=== PATIENT | female | born 1950 | race Caucasian/White ===

== ENCOUNTER 2016-11-10 07:59 | Day surgery (SDC) | payer MEDICARE, OTHER ==
--- NOTE | ~2016-11-10 | EGD ---
EGD REPORT [facility] [address] [address] NAME: ROCIO RENTERIA : [birth year] STATUS : REG [facility]#: [id number] AGE: 66 ADM/REG DATE : 11/10/16 MR#: [id number] REPORT SERV DATE: 11/10/16 DICTATED BY: DATE: REPORT STATUS : Draft TRANSCRIBED BY: [employer] DATE: 11/10/16 [facility] Patient Name: Rocio Renteria Date of : 1950 Attending MD: BLAYNE RAVI MD Procedure Date No Time: 11/10/2016 Procedure: Upper GI endoscopy Indications: Cirrhosis with suspected esophageal varices Referring MD: JOSE ANGEL BERNARDO MD Medicines: Monitored Anesthesia Care Complications: No immediate complications. Procedure: Pre-Anesthesia Assessment: - ASA Grade Assessment: III - A patient with severe systemic disease. After obtaining informed consent, the endoscope was passed under direct vision. Throughout the procedure, the patient's blood pressure, pulse, and oxygen saturations were monitored continuously. The GIF H190 [id number] was introduced through the mouth, and advanced to the third part of duodenum. The upper GI endoscopy was accomplished without difficulty. The patient tolerated the procedure well. Findings: Grade I varices were found in the lower third of the esophagus. No other significant abnormalities were identified in a careful examination of the esophagus. There is no endoscopic evidence of Vera's esophagus, areas of erosion, hiatus hernia or ulcerations in the entire esophagus. Moderate portal hypertensive gastropathy was found in the entire examined stomach. No other significant abnormalities were identified in a careful examination of the stomach. There is no endoscopic evidence of ulceration or varices in the entire examined stomach. The examined duodenum was normal. Biopsies were taken with a cold forceps for histology. There is no endoscopic evidence of inflammation, mucosal abnormalities or ulceration in the entire examined duodenum. The cardia and gastric fundus were normal on retroflexion. Impression: - Grade I esophageal varices. - Portal hypertensive gastropathy. - Normal examined duodenum. Biopsied. EGD REPORT [place] [id number] [place]. [address] NAME: ROCIO RENTERIA : [birth year] STATUS : REG [facility]#: [id number] AGE: 66 ADM/REG DATE : 11/10/16 MR#: [id number] REPORT SERV DATE: 11/10/16 DICTATED BY: DATE: REPORT STATUS : Draft TRANSCRIBED BY: [employer] DATE: 11/10/16 Recommendation: - Patient has a contact number available for emergencies. The signs and symptoms of potential delayed complications were discussed with the patient. Return to normal activities tomorrow. Written discharge instructions were provided to the patient. - Return to previous diet. - Discharge patient to home. - Continue present medications. - Await pathology results. - Repeat the upper endoscopy in 1 year for surveillance. Procedure Code(s): --- Professional --- 89942, Esophagogastroduodenoscopy, flexible, transoral; with biopsy, single or multiple Diagnosis Code(s): --- Professional --- I85.10, Secondary esophageal varices without bleeding K76.6, Portal hypertension K31.89, Other diseases of stomach and duodenum K74.60, Unspecified cirrhosis of liver CPT copyright 2013 [employer]. All rights reserved. The codes documented in this report are preliminary and upon photographer finish review may be revised to meet current compliance requirements. BLAYNE M RAVI, MD 11/10/2016 9:23 AM This report has been signed electronically. Number of Addenda: 0 Note Initiated On: 11/10/2016 9:07 AM Scope Withdrawal Time 0 hours 0 minutes 0 seconds [address] [id number]
--- NOTE | ~2016-11-10 | EGD ---
EGD REPORT [place] [address] [address] NAME: ROCIO RENTERIA : [birth year] STATUS : REG [facility]#: [id number] AGE: 66 ADM/REG DATE : 11/10/16 MR#: [id number] REPORT SERV DATE: 11/10/16 DICTATED BY: DATE: REPORT STATUS : Draft TRANSCRIBED BY: [employer] DATE: 11/10/16 [facility] Patient Name: Rocio Renteria Date of : 1950 Attending MD: BLAYNE RAVI MD Procedure Date No Time: 11/10/2016 Procedure: Colonoscopy Indications: Screening for colorectal malignant neoplasm Referring MD: JOSE ANGEL BERNARDO MD Medicines: Monitored Anesthesia Care Complications: No immediate complications. Procedure: Pre-Anesthesia Assessment: - ASA Grade Assessment: III - A patient with severe systemic disease. After I obtained informed consent, the scope was passed under direct vision. Throughout the procedure, the patient's blood pressure, pulse, and oxygen saturations were monitored continuously. The PCF [id number] was introduced through the anus and advanced to the cecum, identified by appendiceal orifice and ileocecal valve. The colonoscopy was performed without difficulty. The patient tolerated the procedure well. The quality of the bowel preparation was excellent. Findings: The perianal and digital rectal examinations were normal. A few small-mouthed diverticula were found in the ascending colon and in the cecum. Three flat polyps were found in the descending colon. The polyps were small in size. These polyps were removed with a cold snare. Resection and retrieval were complete. A sessile polyp was found in the sigmoid colon. The polyp was small in size. The polyp was removed with a cold snare. Resection and retrieval were complete. Two small angioectasias without bleeding were found in the descending colon and in the ascending colon. No other significant abnormalities were identified in a careful examination of the remainder of the colon. There is no endoscopic evidence of inflammation, mass or ulcerations in the entire colon. Internal hemorrhoids were found during retroflexion and were Grade I (internal hemorrhoids that do not prolapse). No additional abnormalities were found on retroflexion. Impression: - Diverticulosis in the ascending colon and in the cecum. EGD REPORT [address] [address] NAME: ROCIO RENTERIA : [birth year] STATUS : REG [facility] PAT#: [id number] AGE: 66 ADM/REG DATE : 11/10/16 MR#: [id number] REPORT SERV DATE: 11/10/16 DICTATED BY: DATE: REPORT STATUS : Draft TRANSCRIBED BY: [employer] DATE: 11/10/16 - Three small polyps in the descending colon. Resected and retrieved. - One small polyp in the sigmoid colon. Resected and retrieved. - Two non-bleeding colonic angioectasias. - Internal hemorrhoids. Recommendation: - Patient has a contact number available for emergencies. The signs and symptoms of potential delayed complications were discussed with the patient. Return to normal activities tomorrow. Written discharge instructions were provided to the patient. - High fiber diet. - Discharge patient to home. - Continue present medications. - Await pathology results. - Repeat colonoscopy in 5-10 years for surveillance based on pathology results. - If the pathology report reveals adenomatous tissue, then repeat the colonoscopy for surveillance in 5 years. - If the pathology report reveals no adenomatous tissue, then repeat the colonoscopy for screening purposes in 10 years. Procedure Code(s): --- Professional --- 17228, Colonoscopy, flexible, proximal to splenic flexure; with removal of tumor(s), polyp(s), or other lesion(s) by snare technique Diagnosis Code(s): --- Professional --- K64.0, First degree hemorrhoids K57.30, Diverticulosis of large intestine without perforation or abscess without bleeding D12.5, Benign neoplasm of sigmoid colon D12.4, Benign neoplasm of descending colon K55.20, Angiodysplasia of colon without hemorrhage Z12.11, Encounter for screening for malignant neoplasm of colon CPT copyright 2013 [employer]. All rights reserved. The codes documented in this report are preliminary and upon research scientist review may be revised to meet current compliance requirements. BLAYNE RAVI MD EGD REPORT [place] [address] [address] NAME: ROCIO RENTERIA : [birth year] STATUS : REG [facility]#: [id number] AGE: 66 ADM/REG DATE : 11/10/16 MR#: [id number] REPORT SERV DATE: 11/10/16 DICTATED BY: DATE: REPORT STATUS : Draft TRANSCRIBED BY: [employer] DATE: 11/10/16 11/10/2016 9:42 AM This report has been signed electronically. Number of Addenda: 0 Note Initiated On: 11/10/2016 9:07 AM Scope Withdrawal Time 0 hours 10 minutes 3 seconds [address] [address]
[~2016-11-10 07:59] MED LIST: BENICAR40 PO; GLUCPH PO; I40 PO; L20 PO; LANTUS SC; LEVOTHYROXIN175 MCG PO; SPIRO50 PO; ZOCOR40 PO
== END 2016-11-10 23:59 | disposition home or self-care (01) ==
LOC: DMU 07:59
PROVIDERS: Internal Medicine Gastroenterology
PROC: 0DB98ZX Excision of Duodenum, Via Natural or Artificial Opening Endoscopic, Diagnostic (ICD-10-PCS; 2016-11-10)
PROC: 0DBN8ZX Excision of Sigmoid Colon, Via Natural or Artificial Opening Endoscopic, Diagnostic (ICD-10-PCS; principal; 2016-11-10 10:00)
PROC: 0DBM8ZX Excision of Descending Colon, Via Natural or Artificial Opening Endoscopic, Diagnostic (ICD-10-PCS; 2016-11-10 10:00)
DX: Z12.11 Encounter for screening for malignant neoplasm of colon (principal); K63.5 Polyp of colon; K64.0 First degree hemorrhoids; K57.30 Diverticulosis of large intestine without perforation or abscess without bleeding; K55.20 Angiodysplasia of colon without hemorrhage; K31.89 Other diseases of stomach and duodenum; I85.10 Secondary esophageal varices without bleeding; K76.6 Portal hypertension; E03.9 Hypothyroidism, unspecified; I10 Essential (primary) hypertension; E78.00 Pure hypercholesterolemia, unspecified; F17.210 Nicotine dependence, cigarettes, uncomplicated; E11.21 Type 2 diabetes mellitus with diabetic nephropathy; Z79.1 Long term (current) use of non-steroidal anti-inflammatories (NSAID); Z88.1 Allergy status to other antibiotic agents; Z88.8 Allergy status to other drugs, medicaments and biological substances
CPT/HCPCS: 82962; 88305; J2370